=== PATIENT | male | born 1935 | race Caucasian/White ===

== ENCOUNTER → 2017-04-21 | Outpatient (CLI) | payer OTHER ==
[~2017-04-21] MED LIST: ACTOS; ASPIRIN81 MG PO; BUSPAR; CENTRUM PO; CIPRO; COREG3.125 MG PO; DARVOCET-N 1001 TAB; FISH OIL 1,0001 EAC3 PO; FLOMAX0.4 MG; GLYNASE; GLYNASE PO; KEFLEX500 M2 PO; LANTUS100 U/ML; LANTUS100 U/ML SUBQ; MACRODANTIN PO; MIRAPEX; PRAMIPEXOLE DI0.5 MG PO; RENAGEL800 MG PO; SELENIUM200 MC1 PO; SODIUM BICARBO650 MG PO; STARLIX60 MG PO; SYNTHROID; SYNTHROID125 PO; VITAMIN B-122000 MCG PO; VITAMIN C1000 M2 PO; VITAMIN D32000 UNI1 PO; VITAMIN E400 UNI2 PO
--- NOTE | ~2017-04-21 | CR63 ---
[facility] A Service of [facility] RADIOLOGY TEXT RESULTS PATIENT: MERARI RODRIGUEZ LOCATION: [facility] : 35 UNIT #: [id number] AGE: [address]: RACHELLE JARA APRN SEX: M ORDER DR: [id number] [facility] [address] [place], [place] [address] [id number] O MR#: [id number] Acc #: [id number] NAME: MERARI RODRIGUEZ : 1935 SEX: M STUDY DATE/TIME: 04/21/2017 UNIT: [facility] ROOM: STUDY DESCRIPTION: CR Chest 2 View Attending Physician: Rachelle Jara Aprn Referring Physician: Rachelle Jara Aprn Ordering Physician: Rachelle Jara Aprn Primary Care Physician: Pierre Ibarra M.D. MEDICAL IMAGING REPORT This report is preliminary unless electronic signature is present EXAM Chest 2 views 04/21/2017 1439 hours HISTORY 82-year-old man with history of prostate cancer, abnormal liver function tests for 2 weeks. COMPARISON None FINDINGS Upright PA and lateral views of the chest demonstrate heart size which is mildly enlarged with tortuous aorta. The lungs are well expanded. There is horizontal linear atelectasis or scar at the left base. The lungs are otherwise clear, and there are no effusions. IMPRESSION There is mild cardiomegaly and a tortuous aorta. There is horizontal linear atelectasis or scar at the left base. The lungs are otherwise clear, and there are no effusions. Dictated by... Becky Lynn M.D. THIS IS AN ELECTRONICALLY VERIFIED REPORT Becky Lynn M.D. at 04/24/2017 10:35 AM GISSEL/robert TD: 04/21/2017 18:22 JOB #: [id number] [facility] A Service of [facility] RADIOLOGY TEXT RESULTS PATIENT: MERARI RODRIGUEZ LOCATION: [facility] : 35 UNIT #: [id number] AGE: [address]: RACHELLE JARA APRN SEX: M ORDER DR: MEDICAL IMAGING REPORT Page 1 of 1 COPY
== END | disposition home or self-care (01) ==
LOC: CRAD 14:20
DX: R79.89 Other specified abnormal findings of blood chemistry (principal); I51.7 Cardiomegaly; I77.1 Stricture of artery; Z85.46 Personal history of malignant neoplasm of prostate
CPT/HCPCS: 71020